=== PATIENT | male | born 1995 | race African-American/Black ===

== ENCOUNTER → 2021-10-11 | Outpatient (CLI) | payer OTHER | LOC: MHCPAIN 14:34 | DX: M47.817 Spondylosis without myelopathy or radiculopathy, lumbosacral region (principal); M54.50 Low back pain, unspecified; M53.3 Sacrococcygeal disorders, not elsewhere classified | CPT/HCPCS: G0463 ==

== ENCOUNTER → 2021-12-20 | Outpatient (CLI) | payer OTHER | LOC: MHCPAIN 15:40 | DX: M53.3 Sacrococcygeal disorders, not elsewhere classified (principal); M54.50 Low back pain, unspecified; M54.16 Radiculopathy, lumbar region | CPT/HCPCS: G0463 ==